=== PATIENT | female | born 1975 | race American Indian/Alaskan Native ===

== ENCOUNTER 2018-12-27 17:03 | Emergency (ER) | payer MEDICAID, OTHER ==
[2018-12-27] MEDS ORDERED: CATAPRES PO ONE (17:55)
--- NOTE | 2018-12-27 17:58 | Emergency Department Report ---
Blank Doc - Documentation Documentation: This is a 43-year-old female that presents with URI symptoms. HX of HTN with out taking any medications. Denies any headache. This initial assessment/diagnostic orders/clinical plan/treatment(s) is/are subject to change based on patient's health status, clinical progression and re- assessment by fellow clinical providers in the ED. Further treatment and workup at subsequent clinical providers discretion. Patient/guardians urged not to elope from the ED as their condition may be serious if not clinically assessed and managed. Initial orders include: 1- Patient sent to [facility] for further evaluation and treatment 2- CXR 3- catapress 4- repeat vitals q15m. RN was notified to repeat vitals.
[2018-12-27] MEDS ORDERED: CATAPRES ONE (18:00)
--- NOTE | 2018-12-27 19:07 | XRay Report ---
PROCEDURE: XR CHEST 1V AP TECHNIQUE: Chest single AP HISTORY: cough COMPARISONS: FINDINGS: Cardiac and mediastinal contours are unremarkable. There is partially calcified granuloma present wit hin the right distribution. No acute infiltrate identified. No pleural fluid collection seen. Pulmona ry vasculature is unremarkable. IMPRESSION: Nodular density in the right hemithorax appears most consistent with calcified granuloma. No acute findings in the chest. This document is electronically signed by Valerio Castanon MD., Dec 27 2018 07:05:27 PM ET
[2018-12-27] MEDS ORDERED: SOLU-Medrol IM ONE (19:23)
[2018-12-27] MEDS ORDERED: PROVENTIL IH ONE ×2 (19:23→22:48)
--- NOTE | 2018-12-27 20:36 | Emergency Department Report ---
- General Chief Complaint: Upper Respiratory Infection Stated Complaint: PINK EYE/HBP/ASTHMA SENT BY DR Mccoy Seen by Provider: 12/27/18 17:54 Source: patient Mode of arrival: Ambulatory Limitations: No Limitations - History of Present Illness Initial Comments: Patient is a 43-year-old -Cyp[place] female with a history of asthma and hypertension who presents to the ED with a complaint of persistent elevated blood hypertension, sinus and nasal congestion,dry cough, sore throat, frontal sinus pressure and headache and pleuritic chest pain with cough for the last 2 weeks. Patient states that the cough is worse at night despite using her albuterol. The patient denies dizziness, fever, chills, nausea, vomiting, abdominal pain, shortness of breath, chest pain, dysuria, urinary frequency and urgency, change in mentation, palpitations or diarrhea. Patient states that the last time she took her blood pressure medication was 2 years ago. MD Complaint: cough, sore throat, rhinorrhea, nasal congestion, sinus pain, other (COUGH) -: Sudden, week(s) (2) Severity: severe Severity scale (0 -10): 7 Quality: sharp, aching Consistency: intermittent Improves With: nothing Worsens With: nothing Associated Symptoms: headache, rhinorrhea, nasal congestion, sore throat, cough. denies: fever, chills, myalgias, diaphoresis, stiff neck, chest pain, shortness of breath, abdominal pain, nausea, vomiting, diarrhea, dysuria, rash, confusion, weight loss, hoarseness, ear pain, other Treatments Prior to Arrival: none - Related Data Previous Rx's Medication Instructions Recorded Last Taken Type Diphenhydramine HCl [Benadryl 25 mg PO Q8HR PRN #20 tablet 03/26/15 Unknown Rx Allergy TAB] Prednisone [predniSONE 10 mg 10 mg PO .TAPER #1 tab.ds.pk 03/26/15 Unknown Rx (6-Day Pack, 21 Tabs)] Promethazine /Codeine 5 ml PO Q6H PRN #90 ml 03/26/15 Unknown Rx [Phenergan/Codeine 6.25-10 mg/5Ml] Amoxicillin [Trimox CAP] 500 mg PO Q8H #30 capsule 12/27/18 Unknown Rx Benzonatate [Tessalon Perles] 100 mg PO Q8HR #30 capsule 12/27/18 Unknown Rx Lisinopril/Hydrochlorothiazide 1 each PO DAILY #30 tablet 12/27/18 Unknown Rx [Zestoretic 20-12.5 mg] methylPREDNISolone [Medrol] 4 mg PO DAILY #21 tab.ds.pk 12/27/18 Unknown Rx Cetirizine HCl [Zyrtec] 10 mg PO DAILY #30 tablet 12/28/18 Unknown Rx Allergies Allergy/AdvReac Type Severity Reaction Status Date / Time morphine AdvReac Seizure Unverified 02/22/15 15:27 ED Review of Systems ROS: Stated complaint: PINK EYE/HBP/ASTHMA SENT BY Other details as noted in HPI Comment: All other systems reviewed and negative Constitutional: no symptoms reported, see HPI. denies: diaphoresis, fever, malaise, weakness, other Eyes: as per HPI. denies: eye pain, eye discharge, vision change ENT: as per HPI, throat pain, congestion. denies: ear pain, dental pain, hearing loss, epistaxis Respiratory: no symptoms reported, see HPI, cough. denies: orthopnea, shortness of breath, SOB with exertion, SOB at rest, stridor, wheezing Cardiovascular: as per HPI. denies: chest pain, palpitations, dyspnea on exertion, orthopnea, syncope, paroxysmal nocturnal dyspnea Endocrine: no symptoms reported, see HPI. denies: excessive sweating, flushing, intolerance to cold, increased urine, unexplained weight gain, unexplained weight loss Gastrointestinal: as per HPI. denies: abdominal pain, nausea, vomiting, diarrhea, constipation, hematemesis, hematochezia Genitourinary: as per HPI. denies: urgency, dysuria, frequency, hematuria, abnormal menses, dyspareunia Musculoskeletal: as per HPI. denies: back pain, joint swelling, arthralgia, myalgia Skin: as per HPI. denies: rash, lesions, change in color, change in hair/nails Neurological: as per HPI, headache. denies: numbness, paresthesias, abnormal gait, vertigo Psychiatric: as per HPI. denies: auditory hallucinations, visual hallucinations, homicidal thoughts Hematological/Lymphatic: as per HPI. denies: easy bruising, swollen glands ED Past Medical Hx - Past Medical History Previous Medical History?: Yes Hx Hypertension: Yes Hx Asthma: Yes - Social History Smoking Status: Never Smoker Substance Use Type: None - Medications Home Medications: Home Medications Medication Instructions Recorded Confirmed Last Taken Type Diphenhydramine HCl [Benadryl 25 mg PO Q8HR PRN #20 tablet 03/26/15 Unknown Rx Allergy TAB] Prednisone [predniSONE 10 mg 10 mg PO .TAPER #1 tab.ds.pk 03/26/15 Unknown Rx (6-Day Pack, 21 Tabs)] Promethazine /Codeine 5 ml PO Q6H PRN #90 ml 03/26/15 Unknown Rx [Phenergan/Codeine 6.25-10 mg/5Ml] Amoxicillin [Trimox CAP] 500 mg PO Q8H #30 capsule 12/27/18 Unknown Rx Benzonatate [Tessalon Perles] 100 mg PO Q8HR #30 capsule 12/27/18 Unknown Rx Lisinopril/Hydrochlorothiazide 1 each PO DAILY #30 tablet 12/27/18 Unknown Rx [Zestoretic 20-12.5 mg] methylPREDNISolone [Medrol] 4 mg PO DAILY #21 tab.ds.pk 12/27/18 Unknown Rx Cetirizine HCl [Zyrtec] 10 mg PO DAILY #30 tablet 12/28/18 Unknown Rx ED Physical Exam - General Limitations: No Limitations General appearance: alert, in no apparent distress - Head Head exam: Present: atraumatic, normocephalic, normal inspection - Eye Eye exam: Present: normal appearance, PERRL, EOMI. Absent: scleral icterus, conjunctival injection, nystagmus, periorbital swelling, periorbital tenderness Pupils: Present: normal accommodation - ENT ENT exam: Present: normal exam, mucous membranes moist, TM's normal bilaterally, normal external ear exam, other (Grossly congested nasal passages with palpable tenderness of maxillary and frontal sinuses) - Neck Neck exam: Present: normal inspection, full ROM. Absent: tenderness, meningismus, lymphadenopathy, thyromegaly - Respiratory Respiratory exam: Present: normal lung sounds bilaterally, wheezes (mild wheezes diffusely). Absent: respiratory distress, rhonchi, stridor, chest wall tenderness, decreased breath sounds, prolonged expiratory - Cardiovascular Cardiovascular Exam: Present: regular rate, normal rhythm, normal heart sounds - GI/Abdominal GI/Abdominal exam: Present: soft, normal bowel sounds. Absent: distended, tenderness, rebound, diminished bowel sounds, hypoactive bowel sounds - Rectal Rectal exam: Present: deferred - Extremities Exam Extremities exam: Present: normal inspection, full ROM, normal capillary refill - Back Exam Back exam: Present: normal inspection, full ROM. Absent: tenderness, CVA tenderness (R), CVA tenderness (L), muscle spasm, paraspinal tenderness, vertebral tenderness - Neurological Exam Neurological exam: Present: alert, oriented X3, CN II-XII intact, normal gait, reflexes normal - Psychiatric Psychiatric exam: Present: normal affect - Skin Skin exam: Present: warm, dry, intact, normal color, rash ED Course Vital Signs 12/27/18 12/27/18 12/27/18 17:52 19:44 20:50 Temperature 98.2 F 98.3 F Pulse Rate 80 60 67 Respiratory 16 18 18 Rate Blood Pressure 205/122 Blood Pressure 164/98 175/107 [Left] O2 Sat by Pulse 98 100 100 Oximetry 12/27/18 12/27/18 12/28/18 21:02 22:13 00:05 Temperature 98.2 F 98.3 F Pulse Rate 75 86 69 Respiratory 16 19 Rate Blood Pressure 192/111 Blood Pressure 216/119 158/97 [Left] O2 Sat by Pulse 99 100 Oximetry - Reevaluation(s) Reevaluation #1: 12/27/18 20:39 Patient is alert and oriented 3 and is not in distress but hypertensive in triage. Patient was treated for hypertension in the ED with clonidine and Ativan 2 mg by mouth 1. Patient also received a Duoneb treatment and Solu- Medrol in the ED. Patient's chest x-ray is unremarkably normal with no acute pulmonary consolidation. On reevaluation, patient blood pressure improved to 158/97, and wheezing resolved. The patient was discharged home on medications including her prescription for HTN. Patient had previously taken lisinopril with no difficulty, therefore the patient was put back on lisinopril and advised to follow up with [facility] to establish care and for further evaluation. Patient had West return to the ED immediately if symptoms get worse. 12/28/18 00:26 12/28/18 00:28 ED Medical Decision Making - Radiology Data Radiology results: report reviewed, image reviewed Chest x-ray: No acute cardiopulmonary abnormalities - Medical Decision Making Patient is alert and oriented 3 and is not in distress but hypertensive in triage. Patient was treated for hypertension in the ED with clonidine and Ativan 2 mg by mouth 1. Patient also received a Duoneb treatment and Solu- Medrol in the ED. Patient's chest x-ray is unremarkably normal with no acute pulmonary consolidation. On reevaluation, patient blood pressure improved to 158/97, and wheezing resolved. The patient was discharged home on medications including her prescription for HTN. Patient had previously taken lisinopril with no difficulty, therefore the patient was put back on lisinopril and advised to follow up with [facility] to establish care and for further evaluation. Patient had West return to the ED immediately if symptoms get worse. - Differential Diagnosis Pneumonia, Bronchitis, Hypertensive crisis, acute UTI Critical care attestation.: If time is entered above; I have spent that time in minutes in the direct care of this critically ill patient, excluding procedure time. ED Disposition Clinical Impression: Acute asthmatic bronchitis, Uncontrolled stage 2 hypertension, Acute upper respiratory infection Disposition: - TO HOME OR SELFCARE Is pt being admited?: No Does the pt Need Aspirin: No Condition: Stable Instructions: Upper Respiratory Infection (ED), Acute Bronchitis (ED), Hypertension (ED) Additional Instructions: The medications with food, drink plenty of fluids and follow-up with her primary care physician in 5-7 days for reevaluation as advised. Return to the ED immediately if symptoms get worse. Prescriptions: methylPREDNISolone [Medrol] 4 mg PO DAILY #21 tab.ds.pk Benzonatate [Tessalon Perles] 100 mg PO Q8HR #30 capsule Amoxicillin [Trimox CAP] 500 mg PO Q8H #30 capsule Lisinopril/Hydrochlorothiazide [Zestoretic 20-12.5 mg] 1 each PO DAILY #30 tablet Cetirizine HCl [Zyrtec] 10 mg PO DAILY #30 tablet Referrals: CARLOS MALCOLM MD [Primary Care Provider] - 3-5 Days Time of Disposition: 00:30 Print Language: [place]UX[place]
[2018-12-27] MEDS ORDERED: APRESOLINE IM ONE (20:51)
[2018-12-27] MEDS ORDERED: PROCARDIA XL PO ONE (22:51)
[2018-12-28 00:06] VITALS: BP 158/97
== END 2018-12-28 00:49 | disposition home or self-care (01) ==
LOC: ED 17:03
DX: J45.909 Unspecified asthma, uncomplicated (principal); J06.9 Acute upper respiratory infection, unspecified; I10 Essential (primary) hypertension; Z88.6 Allergy status to analgesic agent
CPT/HCPCS: 71045; 94640; 96372; 99284; J0360; J2930